=== PATIENT | male | born 1970 | race Caucasian/White ===

== ENCOUNTER 2017-06-19 12:51 | Emergency (ER) | payer MEDICARE, MEDICAID ==
[~2017-06-19] VITALS: Ht 185.4 cm; Wt 122.3 kg
[2017-06-19 12:57] VITALS: BP 195/102; TEMP 98.1
[2017-06-19] MEDS ORDERED: METHADONE H10 MG/TAB PO (13:02)
[2017-06-19] MEDS ORDERED: DAZIDOX10 MG PO (13:46)
[2017-06-19] MEDS ORDERED: DOXYCYCLINE 10100 MG PO (13:46)
[2017-06-19 14:05] VITALS: PULSE 88
== END 2017-06-19 14:05 | disposition home or self-care (01) ==
LOC: COL.ER 12:51
DX: L97.529 Non-pressure chronic ulcer of other part of left foot with unspecified severity (principal); I10 Essential (primary) hypertension; M54.9 Dorsalgia, unspecified; G89.29 Other chronic pain; F17.210 Nicotine dependence, cigarettes, uncomplicated